=== PATIENT | female | born 1995 | race Caucasian/White ===

== ENCOUNTER 2022-04-26 12:53 | Emergency (ER) | payer OTHER, SELFPAY ==
[2022-04-26 14:31] VITALS: BP 115/92; PULSE 75; RESP 16; TEMP 36.1; O2SAT 98; BMI 41.5
--- NOTE | 2022-04-26 18:35 | PC.NURSE ---
called x 3 to back. no answer. Presumed LWT
== END 2022-04-26 18:57 | disposition left against medical advice (07) ==
LOC: HO.ED 18:43
PROVIDERS: Emergency Provider Emergency Medicine
DX: M79.604 Pain in right leg (principal); R26.81 Unsteadiness on feet
CPT/HCPCS: 99281; 99282

== ENCOUNTER 2022-11-10 13:41 | Emergency (ER) | payer OTHER, SELFPAY ==
--- NOTE | ~2022-11-10 | CT_ITS ---
EXAMINATION: CT HEAD WITHOUT CONTRAST CLINICAL INFORMATION: Headache, left-sided weakness, resolved COMPARISON: None available. TECHNIQUE: Contiguous axial imaging was performed from the skull base to vertex without intravenous administration of contrast. This CT examination was performed using dose optimization techniques as appropriate, variously including the following: *Automated exposure control *Adjustment of mA and/or kV according to patient size (this includes techniques or standardized protocols for targeted exams where dose is matched to indication/reason for exam; i.e. extremities or head) *Use of iterative reconstruction technique DLP: 646 mGy-cm FINDINGS: There is no evidence of acute intracranial hemorrhage or territorial infarction. No abnormal mass effect or midline shift is seen. Virgen to white matter differentiation is well preserved. No extra-axial fluid collections are identified. The ventricles are normal in size. No abnormal attenuation in the brain parenchyma. No acute calvarial fracture.. Paranasal sinuses and mastoid air cells are well-aerated. CT/CT head/brain wo IV con IMPRESSION: No CT evidence of acute intracranial hemorrhage or edematous territorial infarction. Cause of the patient's symptoms has not been determined. Further evaluation with CTA or MRI as clinically warranted.
--- NOTE | ~2022-11-10 | US_ITS ---
EXAMINATION: US VENOUS ULTRASOUND WITH DOPPLER LOWER EXTREMITY, RIGHT CLINICAL INFORMATION: Right calf pain. COMPARISON: None available. TECHNIQUE: Ultrasound of the deep veins is performed from the hip to the calf with compression sonography and color and pulse Doppler assessment. Spectral analysis with color-flow imaging is performed. FINDINGS: There is normal venous compression and respiratory variation and augmented flow. The visualized common femoral vein, superficial femoral vein, profunda femoral vein, popliteal vein, and the trifurcation region shows no evidence of deep venous thrombosis. There is no significant popliteal fossa cyst. If the patient's symptoms persist, followup ultrasound in 5 days 7 days might be of value to exclude proximal propagation from a non-visualized calf vein. US/US venous duplex LE RT IMPRESSION: No DVT demonstrated in the right lower extremity.
[2022-11-10 14:56] VITALS: BP 134/93; PULSE 61; RESP 19; TEMP 36.6; O2SAT 98; BMI 41.5
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
--- OUTSIDE RECORDS SUMMARY | 2022-11-10 16:07 | XMS_ITS | Continuity of Care Document ---
:1995 Author Organization [facility] ic Address [address] [place] [id number]- Care Team Providers Name Role Phone Ritika Rosen Primary Care Physician [place] [facility] [place]/18/20 - 12/18/[address] [id number] Allergies, Adverse Reactions, Alerts Substance Reaction Severity Status shellfish Active Immunizations Given and Recorded Vaccine Date Status Refusal Reason tetanus/diphtheria/pertussis, acel(Tdap) 10/09/16 Given tetanus/diphtheria/pertussis, acel(Tdap) 09/26/13 Given influenza virus vaccine, inactivated1 06/19/16 Given influenza virus vaccine, inactivated 07/18/13 Given 1Result Comment: afluria vaccine Medications aspirin 81 mg oral delayed release tablet 162 mg, 2, tablet, By Mouth, Daily, To start at 12 weeks gestational age - December 22, 2020, # 90 tablet,Refills 2, Tot. Refills 2, Maintenance, 12/09/20 10:13:00 EDT, Route to Pharmacy Electronically, [facility]/pharmacy #[id number], Partial fill upon patient request... Start Date: 12/09/20 Status: Orderedprazosin 2 mg oral capsule 2 capsule = 4 mg, By Mouth, Daily at bedtime, for nightmares, # 60 capsule, 1 Refills, Maintenance, 10/03/18 11:31:36 EST Start Date: 10/03/18 Stop Date: 12/02/18 Status: OrderedPrenatal Multivitamins with Folic Acid 1 mg oral tablet 1 tablet, By Mouth, Daily, # 90 tablet, 2 Refills, Maintenance, 11/13/20 10:27:00 EDT, Tablet, [facility]/pharmacy #[id number], Partial fill upon patient request if the prescription is for a schedule II opioid drug., 1 tablet By Mouth Daily, 171, cm, 10/21/20 9:54... Start Date: 11/13/20 Status: OrderedUnisom 25 mg oral tablet 1 tablet = 25 mg, By Mouth, Daily at bedtime, PRN Nausea & Vomiting, # 30 tablet, 1 Refills, Acute 03/16/21 10:28:00 EDT, 11/13/20 10:27:00 EDT, [facility]/pharmacy #[id number], Partial fill upon patient request if the prescription is for a schedule II opioid drug... Start Date: 11/13/20 Stop Date: 03/16/21 Status: OrderedVitamin B6 25 mg oral tablet 1 tablet = 25 mg, By Mouth, 3 times a day, PRN Nausea & Vomiting, # 90 tablet, 1 Refills, Acute 03/16/21 10:27:00 EDT, 11/13/20 10:27:00 EDT, [facility]/pharmacy #[id number], Partial fill upon patient request if the prescription is for a schedule II opioid drug.,... 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
--- OUTSIDE RECORDS SUMMARY | 2022-11-10 16:07 | XMS_ITS | Continuity of Care Document ---
:1995 Author Organization [facility] ic Address [address] [place] [id number]- Care Team Providers Name Role Phone Ritika Rosen Primary Care Physician Encounter [facility] [place] Date(s): 12/09/20 - 01/10/[address] [address]- Attending Physician: Not on Staff, Attending MD Allergies, Adverse Reactions, Alerts Substance Reaction Severity [...] 90 tablet,Refills 2, Tot. Refills 2, Maintenance, 12/31/20 9:42:00 EDT, Route to Pharmacy Electronically, [facility]/pharmacy #[id number], Partial fill upon patient request... Start Date: 12/31/20 Status: OrderedPrenatal Multivitamins with Folic Acid 1 mg oral tablet 1 tablet, By Mouth, Daily, # 90 tablet, 2 Refills, Maintenance, 11/13/20 10:27:00 EDT, Tablet, [facility]/pharmacy #[id number], Partial fill upon patient request if the prescription is for a schedule II opioid drug., 1 tablet By Mouth Daily, 171, cm, 10/21/20 9:54... Start Date: 11/13/20 Status: OrderedUnisom 25 mg oral tablet 1 tablet = 25 mg, By Mouth, Daily at bedtime, PRN Nausea & Vomiting, # 30 tablet, 1 Refills, Acute 03/16/21 10:28:00 EDT, 11/13/20 10:27:00 EDT, [facility]/pharmacy #[id number], Partial fill upon patient request if the prescription is for a schedule II opioid drug... Start Date: 11/13/20 Stop Date: 03/16/21 Status: OrderedVitamin B6 25 mg oral tablet 1 tablet = 25 mg, By Mouth, 3 times a day, PRN Nausea & Vomiting, # 90 tablet, 1 Refills, Acute 03/16/21 10:27:00 EDT, 11/13/20 10:27:00 EDT, [facility]/pharmacy #[id number], Partial fill upon patient request if the prescription is for a schedule II opioid drug.,... Start Date: 11/13/20 Stop Date: 03/16/21 Status: Ordered Problem List Condition Effective Dates [...]
--- OUTSIDE RECORDS SUMMARY | 2022-11-10 16:07 | XMS_ITS | Continuity of Care Document ---
:1995 Author Organization [facility] ic Address [address] [place] [address]- Care Team Providers Name Role Phone Ritika Rosen Primary Care Physician Encounter [facility] Date(s): 09/29/21 - 11/07/[address] [address]- Attending Physician: Not on Staff, Attending MD Allergies, Adverse Reactions, Alerts Substance Reaction Severity Status shellfish Active Immunizations Given and Recorded Vaccine Date Status Refusal Reason SARS-CoV-2 (COVID-19) mRNA BNT-162b2 vac 06/20/21 Given influenza virus vaccine, inactivated 06/19/21 Given influenza virus vaccine, inactivated1 06/19/16 Given influenza virus vaccine, inactivated 07/18/13 Given tetanus/diphtheria/pertussis, acel(Tdap) 04/18/21 Given tetanus/diphtheria/pertussis, acel(Tdap) 10/09/16 Given tetanus/diphtheria/pertussis, acel(Tdap) 09/26/13 Given 1Result Comment: afluria vaccine Medications acetaminophen 325 mg oral tablet 650 mg, By Mouth, Every 4 hours, PRN, (1-3), may give 325mg per patient preference and re-dose with 325mg within 4 hours, if needed. Patient should only receive a total of 650mg of Acetaminophen every 4 hours., # 50 tablet, Refills 0, Tot. Refills 0... Start Date: 06/20/21 Status: OrderedColace sodium 100 mg oral capsule 100 mg, 1, capsule, By Mouth, 2 times a day, Refills 0, Maintenance, 06/20/21 6:35:00 EDT, Partial fill upon patient request if the prescription is for a schedule II opioid drug. Start Date: 06/20/21 Status: Orderedibuprofen 800 mg oral tablet 800 mg, 1, tablet, By Mouth, Every 8 hours, PRN, (4-6), may give 400mg per patient preference and re-dose with 400mg within 8 hours if needed. Patient should only receive a total of 800mg of Ibuprofen every 8 hours., # 50 tablet, Refills 0, Tot. Ref... Start Date: 06/20/21 Status: OrderedmedroxyPROGESTERone 150 mg/mL intramuscular suspension 1 mL = 150 mg, Intramuscular, On Discharge, 0 Refills, Maintenance, 06/20/21 6:35:00 EDT, Injection,Partial fill upon patient request if the prescription is for a schedule II opioid drug. Start Date: 06/20/21 Status: OrderedPrenatal Multivitamins with Folic Acid 1 mg oral tablet 1 tablet, By Mouth, Daily, # 90 tablet, 2 Refills, Maintenance, 11/13/20 10:27:00 EDT, Tablet, [id number], Partial fill upon patient request if the prescription is for a schedule II opioid drug., 1 tablet By Mouth Daily, 171, cm, 10/21/20 9:54... 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
--- OUTSIDE RECORDS SUMMARY | 2022-11-10 16:07 | XMS_ITS | Continuity of Care Document ---
:1994 Author Organization [facility] ic Address [address] [place] [address]- Care Team Providers Name Role Phone Ritika Rosen Primary Care Physician [place] [facility] [place] 08/04/22 - 09/06/[address] [address]- Attending Physician: Not on Staff, Attending MD Referring Physician: Ritika Rosen Allergies, Adverse Reactions, Alerts Substance Reaction Severity Status shellfish Active Immunizations Given and Recorded Vaccine Date Status Refusal Reason SARS-CoV-2 (COVID-19) mRNA BNT-162b2 vac 06/20/21 Given influenza virus vaccine, inactivated 06/19/21 Given influenza virus vaccine, inactivated1 06/19/16 Given influenza virus vaccine, inactivated 07/18/13 Given tetanus/diphtheria/pertussis, acel(Tdap) 04/18/21 Given tetanus/diphtheria/pertussis, acel(Tdap) 10/09/16 Given tetanus/diphtheria/pertussis, acel(Tdap) 09/26/13 Given 1Result Comment: afluria vaccine Medications Depo-Provera Contraceptive 150 mg/mL intramuscular suspension 1 mL = 150 mg, Intramuscular, 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 Start Date: 05/12/22 Status: OrderedPlan B One-Step 1.5 mg oral tablet 1.5 mg, 1, tablet, By Mouth, Once, # 1 tablet, Refills 0, Tot. Refills 0, Soft Stop, 05/12/22 9:07:00 EDT, Route to Pharmacy Electronically, [facility]/pharmacy #[id number], Partial fill upon patient request if theprescription is for a schedule II opioid drug., 1... Start Date: 05/12/22 Status: Ordered Problem List Condition Confirmation Course Effective Dates Status Health I nformant Status anxiety Confirmed Active Marijuana use Confirmed Active ASCUS with positive Confirmed Active high risk HPV cervical Depo-Provera Confirmed Active contraceptive status History of Confirmed Active gestational diabetes History of Confirmed Active pre-eclampsia Morbid obesity with Confirmed Active BMI of 40.0-44.9, adult Polycystic ovarian Confirmed Active syndrome Severe obesity Confirmed Active Social History Social History Type Response Smoking Status Former smoker, quit more mamta n 30 days ago entered on: 04/08/20 Sex Female Patient Care team information Care Team PersonnelName: Ritika Rosen Position: [facility] Outreach Member Role: PCP Address: Address: [address] [place] [address]- Care Team Related PersonsName: JAELYN HALL Address: home [address] [place] [address] Name: JENNYFER JOHNSON Address: [address] Address: home [address] [address] [place]
--- OUTSIDE RECORDS SUMMARY | 2022-11-10 16:07 | XMS_ITS | Continuity of Care Document ---
:1994 Author Organization [facility] ic Address [address] [place] [address]- Care Team Providers Name Role Phone Ritika Rosen Primary Care Physician Encounter [facility] Date(s): 07/28/21 - 08/27/[address] [address]- Allergies, Adverse Reactions, Alerts Substance Reaction Severity [...] 2 Refills, Maintenance, 11/13/20 10:27:00 EDT, Tablet, [facility]/pharmacy #[id number], Partial fill upon patient request if the prescription is for a schedule II opioid drug., 1 tablet By Mouth Daily, 171, cm, 10/21/20 9:54... Start Date: 11/13/20 Status: Ordered Problem List Condition Effective Dates Status Health Status Informant Marijuana use(Confirmed) Active ASCUS with positive high risk HPV Active cervical(Confirmed) History of gestational Active diabetes(Confirmed) History of pre-eclampsia(Confirmed) Active Morbid obesity with BMI of 40.0-44.9, Active adult(Confirmed) Polycystic ovarian syndrome(Confirmed) Active Severe obesity(Confirmed) Active Social History Social History Type Response Smoking Status Former smoker, quit more mamta n 30 days ago entered on: 04/08/20 Sex Female
--- OUTSIDE RECORDS SUMMARY | 2022-11-10 16:07 | XMS_ITS | Continuity of Care Document ---
:1994 Author Organization [facility] ic Address [address] [place] [address]- Care Team Providers Name Role Phone Ritika Rosen Primary Care Physician Encounter [facility] Date(s): 05/23/21 - 06/22/[address] [address]- Allergies, Adverse Reactions, Alerts Substance Reaction Severity [...] 2 Refills, Maintenance, 11/13/20 10:27:00 EDT, Tablet, [facility]/pharmacy #[id number], Partial fill upon patient request if [...]
--- OUTSIDE RECORDS SUMMARY | 2022-11-10 16:07 | XMS_ITS | Continuity of Care Document ---
:1994 Author Organization [facility] Address [address] [place] [address]- Care Team Providers Name Role Phone Ritika Rosen Primary Care Physician Encounter [facility] [place] Date(s): 03/04/21 - 03/04/[address] [address] Discharge Disposition: A-D/C AMA Attending Physician: Zahida Delarosa MD Admitting Physician: Zahida Delarosa MD Referring Physician: Zahida Delarosa MD Allergies, Adverse Reactions, Alerts Substance Reaction [...] 12/31/20 9:42:00 EDT, Route to Pharmacy [facility]ically, [id number], Partial fill upon patient request... Start Date: 12/31/20 Status: Orderedmagnesium oxide 500 mg oral tablet 1 tablet = 500 mg, By Mouth, Daily, for 14 days, # 14 tablet, 0 Refills, Acute 03/17/21 17:38:00 EDT, 03/03/21 17:38:00 EDT, Tablet, [id number], Partial fill upon patient request if the prescription is for a schedule II opioid drug., 171, cm,... Start Date: 03/03/21 Stop Date: 03/17/21 Status: OrderedPrenatal Multivitamins with Folic Acid 1 [...] Acute 03/16/21 10:27:00 EDT, 11/13/20 10:27:00 EDT, [id number], Partial [...] 40.0-44.9, Active adult(Confirmed) Polycystic ovarian syndrome(Confirmed) Active Vital Signs Most recent to oldest [Reference Range]: 1 Oxygen Saturation [94-100 %] 100 % (03/04/21 10:19 PM) Pulse Rate [55-90 bpm] 85 bpm (03/04/21 10:19 PM) Blood Pressure [90-138/55-84 mm Hg] 145/71 mm Hg *H* (03/04/21 10:19 PM) Respiratory Rate [16-30 br/min] 18 br/min (03/04/21 10:19 PM) Temperature [96.8-100.4 DegF] 98.4 DegF (03/04/21 10:19 PM) Mode of Delivery (Oxygen) Room air (03/04/21 10:19 PM) Blood pressure sites Arm, left (03/04/21 10:19 PM) Temperature Route Oral (03/04/21 10:19 PM) Dry Weight 126.4 kg (03/04/21 10:19 PM) Dry Weight Obtained Via Standing scale (03/04/21 10:19 PM) Social History Social History Type Response Smoking Status Former smoker, quit more mamta n 30 days ago entered on: 04/08/20 Sex
--- OUTSIDE RECORDS SUMMARY | 2022-11-10 16:07 | XMS_ITS | Continuity of Care Document ---
:1994 Author Organization [facility] ic Address [address] [place] [address]- Care Team Providers Name Role Phone Ritika Rosen Primary Care Physician [place] [facility] [place] 07/[place] - 10/04/[address] [address] Attending Physician: Not on Staff, Attending MD [...] 2 Refills, Maintenance, 11/13/20 10:27:00 EDT, Tablet, [facility]/pharmacy #[id number], Partial fill upon patient request [...]
--- OUTSIDE RECORDS SUMMARY | 2022-11-10 16:07 | XMS_ITS | Continuity of Care Document ---
:1994 Author Organization [facility] Address [address] [place] [address]- Care Team Providers Name Role Phone Ritika Rosen Primary Care Physician Encounter [facility] [place] Date(s): 01/23/21 - 01/23/[address] [address] Discharge Disposition: A-D/C Home Attending Physician: Juan Gomes MD Admitting Physician: Juan Gomes MD Referring Physician: Juan Gomes MD Allergies, Adverse Reactions, Alerts Substance Reaction [...] 12/31/20 9:42:00 EDT, Route to Pharmacy Electronically, [facility]/pharmacy #[id number], Partial fill upon patient request... Start Date: 12/31/20 Status: OrderedPrenatal Multivitamins with Folic Acid 1 mg oral tablet 1 tablet, By Mouth, Daily, # 90 tablet, 2 Refills, Maintenance, 11/13/20 10:27:00 EDT, Tablet, [facility]/pharmacy #[id number], Partial fill upon patient request if the prescription is for a schedule II opioid drug., 1 tablet By Mouth Daily, 171, cm, 10/21/20 9:54... Start Date: 11/13/20 Status: OrderedUnisom 25 mg oral tablet 1 tablet = 25 mg, By Mouth, Daily at bedtime, PRN Nausea & Vomiting, # 30 tablet, 1 Refills, Acute 03/16/21 10:28:00 EDT, 11/13/20 10:27:00 EDT, [facility]/pharmacy #[id number], Partial fill upon patient request if the prescription is for a schedule II opioid drug... Start Date: 11/13/20 Stop Date: 03/16/21 Status: OrderedVitamin B6 25 mg oral tablet 1 tablet = 25 mg, By Mouth, 3 times a day, PRN Nausea & Vomiting, # 90 tablet, 1 Refills, Acute 03/16/21 10:27:00 EDT, 11/13/20 10:27:00 EDT, [facility]/pharmacy #[id number], Partial fill upon patient [...] Most recent to oldest [Reference Range]: 1 Weight 121.9 kg (01/23/21 7:01 AM) Oxygen Saturation [94-100 %] 100 % (01/23/21 7:12 AM) Blood Pressure [90-138/55-84 mm Hg] 106/50 mm Hg (01/23/21 7:12 AM) Respiratory Rate [16-30 br/min] 18 br/min (01/23/21 7:12 AM) Temperature [96.8-100.4 DegF] 98.3 DegF (01/23/21 7:12 AM) Mode of Delivery (Oxygen) Room air (01/23/21 7:12 AM) Blood pressure sites Arm, left (01/23/21 7:12 AM) Temperature Route Oral (01/23/21 7:12 AM) Dry Weight 121.9 kg (01/23/21 7:01 AM) Weight Obtained Via Standing scale (01/23/21 7:01 AM) Social History Social History Type Response Smoking Status Former smoker, quit more mamta n 30 days ago entered on: 04/08/20 Sex
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
--- OUTSIDE RECORDS SUMMARY | 2022-11-10 16:07 | XMS_ITS | Continuity of Care Document ---
:1994 Author Organization [facility] ic Address [address] [place] [address]- Care Team Providers Name Role Phone Ritika Rosen Primary Care Physician Encounter [facility] Date(s): 06/09/21 - 07/09/[address] [address]- Allergies, Adverse Reactions, Alerts Substance Reaction Severity [...] 2 Refills, Maintenance, 11/13/20 10:27:00 EDT, Tablet, [facility]/pharmacy #[id number], Partial fill upon patient request if [...]
--- OUTSIDE RECORDS SUMMARY | 2022-11-10 16:07 | XMS_ITS | Continuity of Care Document ---
:1994 Author Organization [facility] ic Address [address] [place] [address]- Care Team Providers Name Role Phone Ritika Rosen Primary Care Physician [place] [facility] [place](s): 12/31/20 - 02/12/[address] [address]- Attending Physician: Not on Staff, Attending MD [...] 12/31/20 9:42:00 EDT, Route to Pharmacy Electronically, [facility]/pharmacy #[id number], Partial fill upon patient request... Start Date: 12/31/20 Status: OrderedPrenatal Multivitamins with Folic Acid 1 mg oral tablet 1 tablet, By Mouth, Daily, # 90 tablet, 2 Refills, Maintenance, 11/13/20 10:27:00 EDT, Tablet, [facility]/pharmacy #[id number], Partial fill upon patient request if the prescription is for a schedule II opioid drug., 1 tablet By Mouth Daily, 171, cm, 10/21/20 9:54... Start Date: 11/13/20 Status: OrderedUnisom 25 mg oral tablet 1 tablet = 25 mg, By Mouth, Daily at bedtime, PRN Nausea & Vomiting, # 30 tablet, 1 Refills, Acute 03/16/21 10:28:00 EDT, 11/13/20 10:27:00 EDT, [facility]/pharmacy #[id number], Partial fill upon patient request if the prescription is for a schedule II opioid drug... Start Date: 11/13/20 Stop Date: 03/16/21 Status: OrderedVitamin B6 25 mg oral tablet 1 tablet = 25 mg, By Mouth, 3 times a day, PRN Nausea & Vomiting, # 90 tablet, 1 Refills, Acute 03/16/21 10:27:00 EDT, 11/13/20 10:27:00 EDT, [facility]/pharmacy #[id number], Partial fill upon patient request [...]
--- OUTSIDE RECORDS SUMMARY | 2022-11-10 16:07 | XMS_ITS | Continuity of Care Document ---
:1994 Author Organization [facility] ic Address [address] [place] [address]- Care Team Providers Name Role Phone Ritika Rosen Primary Care Physician Encounter [facility] Date(s): 06/20/21 - 09/24/[address] [address]- Attending Physician: Not on Staff, Attending MD [...]
--- OUTSIDE RECORDS SUMMARY | 2022-11-10 16:07 | XMS_ITS | Continuity of Care Document ---
:1994 Author Organization [facility] ic Address [address] [place] [address]- Care Team Providers Name Role Phone Elvira WALKER, Snehal Jovel Primary Care Physician Encounter [facility] Date(s): 08/15/20 - 10/04/[address] [address]- Attending Physician: Not on Staff, Attending MD [...] 04/08/20 17:23:00 EDT, Route to Pharmacy Electronically, [facility]/pharmacy #[id number], 171, cm, 04/08/20 12:24:00 EDT, Height Start [...] exposure to STD(Confirmed) Active Marijuana use(Confirmed) Active Elevated blood pressure Active reading(Confirmed) Morbid obesity with BMI of 40.0-44.9, Active adult(Confirmed) Polycystic ovarian syndrome(Confirmed) Active Social History Social History Type Response Smoking Status Former smoker, quit more mamta n 30 days ago entered on: 04/08/20 Sex
--- OUTSIDE RECORDS SUMMARY | 2022-11-10 16:07 | XMS_ITS | Continuity of Care Document ---
:1994 Author Organization [facility] Address [address] [place] [address]- Care Team Providers Name Role Phone Elvira WALKER, Snehal Jovel Primary Care Physician [phone] [place] [facility] 08/17/19 - 09/20/[address] [address] [facility] Attending Physician: Not on Staff, Attending MD Allergies, Adverse Reactions, Alerts Substance Reaction Severity Status shellfish Active Immunizations Given and Recorded Vaccine Date Status Refusal Reason tetanus/diphtheria/pertussis, acel(Tdap) 10/09/16 Given tetanus/diphtheria/pertussis, acel(Tdap) 09/26/13 Given influenza virus vaccine, inactivated1 06/19/16 Given influenza virus vaccine, inactivated 07/18/13 Given 1Result Comment: afluria vaccine Medications prazosin 2 mg oral capsule 2 capsule = [...] Exogenous obesity(Confirmed) Active Homeless - lives in longterm(Confirmed) Active Morbid obesity with BMI of 40.0-44.9, Active adult(Confirmed) Encounter for Depo-Provera Active contraception(Confirmed) Polycystic ovarian syndrome(Confirmed) Active Social History Social History Type Response Smoking Status Current every day smoker; To bacco user in household: Yes entered on: 06/12/15 Sex
--- OUTSIDE RECORDS SUMMARY | 2022-11-10 16:07 | XMS_ITS | Continuity of Care Document ---
:1994 Author Organization [facility] ic Address [address] [place] [address]- Care Team Providers Name Role Phone Ritika Rosen Primary Care Physician Encounter [facility] Date(s): 10/13/21 - 12/17/[address] [address]- Attending Physician: Not on Staff, Attending MD [...]
--- OUTSIDE RECORDS SUMMARY | 2022-11-10 16:07 | XMS_ITS | Continuity of Care Document ---
:1994 Author Organization [facility] ic Address [address] [place] [address]- Care Team Providers Name Role Phone Ritika Rosen Primary Care Physician Encounter [facility] Date(s): 01/02/22 - 02/05/[address] [address]- Attending Physician: Not on Staff, Attending MD [...]
--- OUTSIDE RECORDS SUMMARY | 2022-11-10 16:07 | XMS_ITS | Continuity of Care Document ---
:1994 Author Organization [facility] ic Address [address] [place] [address]- Care Team Providers Name Role Phone Elvira WALKER, Snehal Jovel Primary Care Physician Encounter [facility] Date(s): 08/05/20 - 09/04/[address] [address]- Allergies, Adverse Reactions, Alerts Substance Reaction Severity [...] 04/08/20 17:23:00 EDT, Route to Pharmacy Electronically, [facility]/pharmacy #[id number], 171, cm, 04/08/20 12:24:00 EDT, Height Start [...]
--- OUTSIDE RECORDS SUMMARY | 2022-11-10 16:07 | XMS_ITS | Continuity of Care Document ---
:1994 Author Organization [facility] Address [address] [place] [address]- Care Team Providers Name Role Phone Elvira WALKER, Snehal Jovel Primary Care Physician Encounter [facility] [place] Date(s): 08/21/19 - 08/31/[address] [address]- [facility] Attending Physician: Eric Barkley Admitting Physician: Eric Barkley Referring Physician: Eric Barkley Allergies, Adverse Reactions, Alerts Substance Reaction Severity [...] Exogenous obesity(Confirmed) Active Homeless - lives in halfway(Confirmed) Active Morbid obesity with BMI of 40.0-44.9, Active adult(Confirmed) Encounter for Depo-Provera Active contraception(Confirmed) Polycystic ovarian syndrome(Confirmed) Active Social History Social History Type Response Smoking Status Current every day smoker; To bacco user in household: Yes entered on: 06/12/15 Sex
--- OUTSIDE RECORDS SUMMARY | 2022-11-10 16:07 | XMS_ITS | Continuity of Care Document ---
:1994 Author Organization [facility] ic Address [address] [place] [address]- Care Team Providers Name Role Phone Ritika Rosen Primary Care Physician Encounter [facility] Date(s): 02/06/21 - 03/08/[address] [address]- Allergies, Adverse Reactions, Alerts Substance Reaction Severity Status shellfish Active Immunizations Given and Recorded Vaccine Date Status Refusal Reason tetanus/diphtheria/pertussis, acel(Tdap) 10/09/16 Given tetanus/diphtheria/pertussis, acel(Tdap) 09/26/13 Given influenza virus vaccine, inactivated1 06/19/16 Given influenza virus vaccine, inactivated 07/18/13 Given 1Result Comment: afluria vaccine Medications Amoxicillin By Mouth, Maintenance, 03/05/21 10:43:00 EDT Start Date: 03/05/21 Status: Orderedaspirin 81 mg oral delayed release tablet 162 [...]
--- OUTSIDE RECORDS SUMMARY | 2022-11-10 16:07 | XMS_ITS | Continuity of Care Document ---
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 Start Date: 05/12/22 Status: OrderedPlan B One-Step 1.5 mg oral tablet 1.5 mg, 1, tablet, By Mouth, Once, # 1 tablet, Refills 0, Tot. Refills 0, Soft Stop, 05/12/22 9:07:00 EDT, Route to Pharmacy Electronically, [facility]/pharmacy #[id number], Partial fill upon patient request if theprescription [...] information Care Team PersonnelName: Ritika Rosen Position: [facility] Outreach Member Role: PCP Address: Address: [address] [place] [address]- Care Team Related PersonsName: JAELYN HALL Address: home [address] [place] [address] Name: JENNYFER JOHNSON Address: [address] Address: home [address] [address]
--- OUTSIDE RECORDS SUMMARY | 2022-11-10 16:07 | XMS_ITS | Continuity of Care Document ---
:1994 Author Organization [facility] ic Address [address] [place] [address]- Care Team Providers Name Role Phone Ritika Rosen Primary Care Physician Encounter [facility] [place] Date(s): 01/28/21 - 05/15/[address] [address] Attending Physician: Not on Staff, Attending MD Allergies, Adverse Reactions, Alerts Substance Reaction Severity Status shellfish Active Immunizations Given and Recorded Vaccine Date Status Refusal Reason tetanus/diphtheria/pertussis, acel(Tdap) 04/18/21 Given tetanus/diphtheria/pertussis, acel(Tdap) 10/09/16 [...] 12/31/20 9:42:00 EDT, Route to Pharmacy Electronically, [facility]/pharmacy #[id number], Partial fill upon patient request... Start Date: 12/31/20 Status: OrderedPrenatal Multivitamins with Folic Acid 1 mg oral tablet 1 tablet, By Mouth, Daily, # 90 tablet, 2 Refills, Maintenance, 11/13/20 10:27:00 EDT, Tablet, [facility]/pharmacy #[id number], Partial fill upon patient request [...]
--- OUTSIDE RECORDS SUMMARY | 2022-11-10 16:07 | XMS_ITS | Continuity of Care Document ---
:1994 Author Organization 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 Start Date: 05/12/22 Status: OrderedPlan B One-Step 1.5 mg oral tablet 1.5 mg, 1, tablet, By Mouth, Once, # 1 tablet, Refills 0, Tot. Refills 0, Soft Stop, 05/12/22 9:07:00 EDT, Route to Pharmacy Electronically, [facility]/pharmacy #[id number], Partial fill upon patient request [...] information Care Team PersonnelName: Ritika Rosen Position: [facility] Outreach Member Role: PCP Address: Address: [address] [place] [address]- Care Team Related PersonsName: JAELYN HALL Address: home [address] [place] [address] Name: JENNYFER JOHNSON Address: [address] Address: [address] [address] [place]
--- OUTSIDE RECORDS SUMMARY | 2022-11-10 16:07 | XMS_ITS | Continuity of Care Document ---
:1994 Author Organization [facility] ic Address [address] [place] [address]- Care Team Providers Name Role Phone Ritika Rosen Primary Care Physician En[place] [facility] [place] Date(s): 12/11/20 - 01/29/[address] [address] Attending Physician: Not on Staff, Attending MD [...] 12/31/20 9:42:00 EDT, Route to Pharmacy Electronically, [facility]/pharmacy #[id number], Partial fill upon patient request... Start Date: 12/31/20 Status: OrderedPrenatal Multivitamins with Folic Acid 1 mg oral tablet 1 tablet, By Mouth, Daily, # 90 tablet, 2 Refills, Maintenance, 11/13/20 10:27:00 EDT, Tablet, [facility]/pharmacy #[id number], Partial fill upon patient request if the prescription is for a schedule II opioid drug., 1 tablet By Mouth Daily, 171, cm, 10/21/20 9:54... Start Date: 11/13/20 Status: OrderedUnisom 25 mg oral tablet 1 tablet = 25 mg, By Mouth, Daily at bedtime, PRN Nausea & Vomiting, # 30 tablet, 1 Refills, Acute 03/16/21 10:28:00 EDT, 11/13/20 10:27:00 EDT, [facility]/pharmacy #[id number], Partial fill upon patient request if the prescription is for a schedule II opioid drug... Start Date: 11/13/20 Stop Date: 03/16/21 Status: OrderedVitamin B6 25 mg oral tablet 1 tablet = 25 mg, By Mouth, 3 times a day, PRN Nausea & Vomiting, # 90 tablet, 1 Refills, Acute 03/16/21 10:27:00 EDT, 11/13/20 10:27:00 EDT, [facility]/pharmacy #[id number], Partial fill upon [...]
--- OUTSIDE RECORDS SUMMARY | 2022-11-10 16:07 | XMS_ITS | Continuity of Care Document ---
:1994 Author Organization [facility] ic Address [address] [place] [address]- Care Team Providers Name Role Phone Ritika Rosen Primary Care Physician Encounter [facility] Date(s): 04/29/21 - 07/31/[address] [address] Attending Physician: Not on Staff, [...] 2 Refills, Maintenance, 11/13/20 10:27:00 EDT, Tablet, [facility]/pharmacy #[id number], Partial fill upon patient request if [...]
--- OUTSIDE RECORDS SUMMARY | 2022-11-10 16:07 | XMS_ITS | Continuity of Care Document ---
:1994 Author Organization [facility] ic Address [address] [place] [address]- Care Team Providers Name Role Phone Ritika Rosen Primary Care Physician Encounter [facility] Date(s): 10/08/21 - 11/07/[address] [address]- Allergies, Adverse Reactions, Alerts Substance Reaction Severity [...] 2 Refills, Maintenance, 11/13/20 10:27:00 EDT, Tablet, [facility]/pharmacy #[id number], Partial fill upon patient request [...]
--- OUTSIDE RECORDS SUMMARY | 2022-11-10 16:08 | XMS_ITS | Continuity of Care Document ---
:1994 Author Organization [facility] ic Address [address] [place] [address]- Care Team Providers Name Role Phone Ritika Rosen Primary Care Physician Encounter [facility] Date(s): 12/09/21 - 01/10/[address] [address]- Attending Physician: Not on Staff, Attending MD [...]
--- OUTSIDE RECORDS SUMMARY | 2022-11-10 16:08 | XMS_ITS | Continuity of Care Document ---
:1994 Author Organization [facility] ic Address [address] [place] [address]- Care Team Providers Name Role Phone Ritika Rosen Primary Care Physician Encounter [facility] Date(s): 09/12/21 - 10/12/[address] [address]- Allergies, Adverse Reactions, Alerts Substance Reaction Severity [...] 2 Refills, Maintenance, 11/13/20 10:27:00 EDT, Tablet, [facility]/pharmacy #[id number], Partial fill upon patient request [...]
--- OUTSIDE RECORDS SUMMARY | 2022-11-10 16:08 | XMS_ITS | Continuity of Care Document ---
:1994 Author Organization [facility] ic Address [address] [place] [address]- Care Team Providers Name Role Phone Ritika Rosen Primary Care Physician Encounter [facility] Date(s): 11/17/21 - 12/31/[address] [address]- Attending Physician: Not on Staff, Attending MD [...]
--- OUTSIDE RECORDS SUMMARY | 2022-11-10 16:08 | XMS_ITS | Continuity of Care Document ---
:1994 Author Organization [facility] ic Address [address] [place] [address]- Care Team Providers Name Role Phone Ritika Rosen Primary Care Physician Encounter [facility] Date(s): 12/02/21 - 01/01/[address] [address]- Allergies, Adverse Reactions, Alerts Substance Reaction Severity [...] 2 Refills, Maintenance, 11/13/20 10:27:00 EDT, Tablet, [facility]/pharmacy #[id number], Partial fill upon patient [...]
--- OUTSIDE RECORDS SUMMARY | 2022-11-10 16:08 | XMS_ITS | Continuity of Care Document ---
:1994 Author Organization [facility] Address [address] [place] [address]- Care Team Providers Name Role Phone Ritika Rosen Primary Care Physician [place] [facility] [place] 06/17/21 - 07/20/[address] [address] Attending Physician: Scarlet Villarreal MD Admitting Physician: Scarlet Villarreal MD Referring Physician: Ijemoa Corona CNM Allergies, Adverse Reactions, Alerts Substance Reaction Severity [...]
--- OUTSIDE RECORDS SUMMARY | 2022-11-10 16:08 | XMS_ITS | Continuity of Care Document ---
:1994 Author Organization [facility] ic Address [address] [place] [address]- Care Team Providers Name Role Phone Ritika Rosen Primary Care Physician [place] [facility] [place] 04/29/21 - 08/07/[address] [address] Attending Physician: Hui Luna CNM Admitting Physician: Hui Luna CNM Allergies, Adverse Reactions, Alerts Substance Reaction [...] 2 Refills, Maintenance, 11/13/20 10:27:00 EDT, Tablet, [facility]/pharmacy #[id number], Partial fill [...]
--- OUTSIDE RECORDS SUMMARY | 2022-11-10 16:08 | XMS_ITS | Continuity of Care Document ---
:1994 Author Organization [facility] ic Address [address] [place] [address]- Care Team Providers Name Role Phone Elvira WALKER, Snehal Jovel Primary Care Physician [phone] [place] [facility] [place] Date(s): 08/05/20 - 09/08/[address] [address]- Attending Physician: Hui Luna CNM Admitting Physician: [...] 04/08/20 17:23:00 EDT, Route to Pharmacy Electronically, [facility]/pharmacy #[id number], 171, cm, 04/08/20 12:24:00 EDT, Height Start [...]
--- OUTSIDE RECORDS SUMMARY | 2022-11-10 16:08 | XMS_ITS | Continuity of Care Document ---
:1994 Author Organization [facility] ic Address [address] [place] [address]- Care Team Providers Name Role Phone Elvira WALKER, Snehal Jovel Primary Care Physician [place] [facility] [place] Date(s): 09/17/20 - 10/17/[address] [address]- Allergies, Adverse Reactions, Alerts Substance Reaction Severity [...] 04/08/20 17:23:00 EDT, Route to Pharmacy Electronically, [facility]/pharmacy #[id number], 171, cm, 04/08/20 12:24:00 EDT, Height Start [...] Active cervical(Confirmed) Elevated blood pressure Active reading(Confirmed) Morbid obesity with BMI of 40.0-44.9, Active adult(Confirmed) Polycystic ovarian syndrome(Confirmed) Active Social History Social History Type Response Smoking Status Former smoker, quit more mamta n 30 days ago entered on: 04/08/20 Sex
--- OUTSIDE RECORDS SUMMARY | 2022-11-10 16:08 | XMS_ITS | Continuity of Care Document ---
:1994 Author Organization [facility] Address [address] [place] [address]- Care Team Providers Name Role Phone Ritika Rosen Primary Care Physician [place] [facility] [place](s): 06/18/21 - 06/20/[address] [address] Discharge Disposition: A-D/C Home Attending Physician: Lupe Cedeno MD Admitting Physician: Lupe Cedeno MD Referring Physician: Mitul Post DO Allergies, Adverse Reactions, Alerts Substance Reaction Severity [...] Tot. Refills 0... Start Date: 06/20/21 Status: OrderedAcetaminophen Tablet 650 mg, Tablet, By Mouth, Every 4 hours, PRN for Pain , Mild, (1-3), may give 325mg per patient preference and re-dose with 325mg within 4 hours, if needed. Patient should only receive a total of 650mgof Acetaminophen every 4 hours., Routine, 06/18... Start Date: 06/18/21 Stop Date: 06/20/21 Status: DiscontinuedColace sodium 100 mg oral capsule 100 mg, [...] 0, Tot. Ref... Start Date: 06/20/21 Status: OrderedIbuprofen Tablet 800 mg, Tablet, By Mouth, Every 8 hours, PRN for Pain , Moderate, (4-6), may give 400mg per patient preference and re-dose with 400mg within 8 hours if needed. Patient should only receive a total of 800mg of Ibuprofen every 8 hours., Routine, ... Start Date: 06/18/21 Stop Date: 06/20/21 Status: DiscontinuedmedroxyPROGESTERone 150 mg/mL intramuscular suspension 1 mL = 150 mg, Intramuscular, On Discharge, 0 Refills, Maintenance, 06/20/21 6:35:00 EDT, Injection,Partial fill upon patient request if the prescription is for a schedule II opioid drug. Start Date: 06/20/21 Status: OrderedPrenatal Multivitamins with Folic Acid 1 mg oral tablet 1 tablet, By Mouth, Daily, # 90 tablet, 2 Refills, Maintenance, 11/13/20 10:27:00 EDT, Tablet, [id number], Partial fill upon patient request if the [...] Active Vital Signs Most recent to oldest 1 2 3 [Reference Range]: Height 170 cm 170 cm 170 cm (06/20/21 8:20 AM) (06/19/21 10:00 PM) (06/19/21 4:20 PM) Weight 137 kg (06/18/21 8:03 AM) Oxygen Saturation [94-100 98 % 95 % 100 % %] (06/19/21 10:00 PM) (06/18/21 7:47 PM) (06/18/21 7:09 PM) Pulse Rate [55-90 bpm] 70 bpm 70 bpm 75 bpm (06/20/21 8:20 AM) (06/19/21 10:00 PM) (06/19/21 4:20 PM) Body Mass Index 47.4 [18.5-24.99] *>HHI* (06/18/21 8:03 AM) Blood Pressure 137/71 mm Hg 130/93 mm Hg 117/60 mm Hg [90-138/55-84 mm Hg] (06/20/21 8:20 AM) (06/19/21 10:00 PM) ( 4:20 PM) Respiratory Rate [16-30 17 br/min 18 br/min 18 br/mi n br/min] (06/20/21 8:20 AM) (06/20/21 7:46 AM) (06/20/21 7:46 AM) Temperature [96.8-100.4 98.6 DegF 98.1 DegF 98.3 Deg F DegF] (06/20/21 8:20 AM) (06/19/21 10:00 PM) (06/19/21 4:20 PM) Mode of Delivery (Oxygen) Room air (06/19/21 10:00 PM) Blood pressure sites Arm, right Arm, left Arm, left (06/20/21 8:20 AM) (06/19/21 10:00 PM) (06/19/21 4:20 PM) Temperature Route Oral Oral Oral (06/20/21 8:20 AM) (06/19/21 10:00 PM) (06/19/21 4:20 PM) Dry Weight 137 kg (06/18/21 8:03 AM) Social History Social History Type Response Smoking Status Former smoker, quit more mamta n 30 days ago entered on: 04/08/20 Sex Female
--- OUTSIDE RECORDS SUMMARY | 2022-11-10 16:08 | XMS_ITS | Continuity of Care Document ---
:1994 Author Organization [facility] ic Address [address] [place] [address]- Care Team Providers Name Role Phone Elvira WALKER, Snehal Jovel Primary Care Physician [phone] Encounter [facility] Date(s): 09/03/20 - 10/03/[address] [address]- Allergies, Adverse Reactions, Alerts Substance Reaction Severity [...] 04/08/20 17:23:00 EDT, Route to Pharmacy Electronically, [facility]/pharmacy #[id number], 171, cm, 04/08/20 12:24:00 EDT, Height Start [...]
--- OUTSIDE RECORDS SUMMARY | 2022-11-10 16:08 | XMS_ITS | Continuity of Care Document ---
:1994 Author Organization [facility] ic Address [address] [place] [address]- Care Team Providers Name Role Phone Ritika Rosen Primary Care Physician [place] [facility] [place] 07/[place] - 09/27/[address] [address] Attending Physician: Not on Staff, Attending MD [...] Refills, Maintenance, 11/13/20 10:27:00 EDT, Tablet, [facility]/pharmacy #[id number], Partial fill upon patient request [...]
--- OUTSIDE RECORDS SUMMARY | 2022-11-10 16:08 | XMS_ITS | Continuity of Care Document ---
:1994 Author Organization [facility] Address Unavailable , Care Team Providers Name Role Phone Ritika Rosen Primary Care Physician [place] [facility] [place] Date(s): 03/07/21 - 04/10/21 [facility] Attending Physician: Not on Staff, Attending MD Referring Physician: Ijeoma Corona CNM Allergies, Adverse Reactions, Alerts Substance [...] 12/31/20 9:42:00 EDT, Route to Pharmacy Electronically, [facility]/pharmacy #[id number], Partial fill upon patient request... Start Date: 12/31/20 Status: OrderedPrenatal Multivitamins with Folic Acid 1 mg oral tablet 1 tablet, By Mouth, Daily, # 90 tablet, 2 Refills, Maintenance, 11/13/20 10:27:00 EDT, Tablet, [facility]/pharmacy #[id number], Partial fill upon patient [...]
--- OUTSIDE RECORDS SUMMARY | 2022-11-10 16:08 | XMS_ITS | Continuity of Care Document ---
:1994 Author Organization [facility] ic Address [address] [place] [address]- Care Team Providers Name Role Phone Ritika Rosen Primary Care Physician Encounter [facility] Date(s): 04/29/21 - 07/24/[address] [address]- Attending Physician: Not on Staff, Attending MD [...]
--- OUTSIDE RECORDS SUMMARY | 2022-11-10 16:08 | XMS_ITS | Continuity of Care Document ---
:1994 Author Organization [facility] ic Address [address] [place] [address]- Care Team Providers Name Role Phone Ritika Rosen Primary Care Physician Encounter [facility] Date(s): 09/16/21 - 01/01/[address] [address]- Attending Physician: Not on Staff, Attending MD [...]
--- OUTSIDE RECORDS SUMMARY | 2022-11-10 16:08 | XMS_ITS | Continuity of Care Document ---
:1994 Author Organization [facility] Address [address] [place] [address]- Care Team Providers Name Role Phone Ritika Rosen Primary Care Physician [place] [facility] [place] Date(s): 05/07/21 - 05/07/[address] [address] Discharge Disposition: A-D/C Home Attending Physician: Mis Martinez MD Admitting Physician: Mis Martinez MD Referring Physician: Mis Martinez MD Allergies, Adverse Reactions, Alerts Substance Reaction [...] 12/31/20 9:42:00 EDT, Route to Pharmacy Electronically, [facility]/pharmacy #[id number], Partial fill upon patient request... Start Date: 12/31/20 Status: OrderedPrenatal Multivitamins with Folic Acid 1 mg oral tablet 1 tablet, By Mouth, Daily, # 90 tablet, 2 Refills, Maintenance, 11/13/20 10:27:00 EDT, Tablet, [id number], Partial fill upon patient request if the prescription is for a schedule II opioid drug., 1 tablet By Mouth Daily, 171, cm, 10/21/20 9:54... Start Date: 11/13/20 Status: OrderedTylenol 325 mg oral tablet 650 mg, Tablet, By Mouth, Every 6 hours, PRN for Pain , Mild, Routine, 05/07/21 10:24:00 EDT Start Date: 05/07/21 Stop Date: 05/08/21 Status: Discontinued Problem List Condition Effective Dates Status Health Status Informant Abnormal uterine bleeding(Confirmed) Active Marijuana use(Confirmed) Active ASCUS with positive high risk HPV Active cervical(Confirmed) Elevated blood pressure Active reading(Confirmed) Gestational diabetes(Confirmed) Active Morbid obesity with BMI of 40.0-44.9, Active adult(Confirmed) Polycystic ovarian syndrome(Confirmed) Active Vital Signs Most recent to oldest 1 2 3 [Reference Range]: Height 170 cm (05/07/21 9:26 AM) Weight 130.6 kg (05/07/21 9:17 AM) Pulse Rate [55-90 bpm] 86 bpm (05/07/21 9:26 AM) Blood Pressure [90-138/55-84 130/66 mm Hg 122/60 mm Hg 125 /87 mm Hg mm Hg] (05/07/21 1:54 PM) (05/07/21 11:06 AM) (05/07/21 9: 26 AM) Respiratory Rate [16-30 16 br/min 18 br/min br/min] (05/07/21 2:10 PM) (05/07/21 11:06 AM) Temperature [96.8-100.4 DegF] 98.4 DegF (05/07/21 9:17 AM) Blood pressure sites Arm, right (05/07/21 9:26 AM) Temperature Route Oral (05/07/21 9:17 AM) Dry Weight 130.6 kg (05/07/21 9:17 AM) Weight Obtained Via Standing scale (05/07/21 9:17 AM) Dry Weight Obtained Via Standing scale (05/07/21 9:17 AM) Social History Social History Type Response Smoking Status Former smoker, quit more mamta n 30 days ago entered on: 04/08/20 Sex Female
--- OUTSIDE RECORDS SUMMARY | 2022-11-10 16:08 | XMS_ITS | Continuity of Care Document ---
:1994 Author Organization [facility] ic Address [address] [place] [address]- Care Team Providers Name Role Phone Ritika Rosen Primary Care Physician [place] [facility] [place](s): 06/18/21 - 07/24/[address] [address]- Attending Physician: Pina Scott MD Admitting Physician: Pina Scott MD Referring Physician: Ijeoma Corona CNM Allergies, [...]
--- OUTSIDE RECORDS SUMMARY | 2022-11-10 16:08 | XMS_ITS | Continuity of Care Document ---
:1994 Author Organization [facility] ic Address [address] [place] [address]- Care Team Providers Name Role Phone Ritika Rosen Primary Care Physician Encounter [facility] Date(s): 12/01/21 - 12/31/[address] [address]- Allergies, Adverse Reactions, Alerts Substance Reaction Severity [...] 2 Refills, Maintenance, 11/13/20 10:27:00 EDT, Tablet, [facility]/pharmacy #[id number], Partial fill upon patient request if [...]
--- OUTSIDE RECORDS SUMMARY | 2022-11-10 16:08 | XMS_ITS | Continuity of Care Document ---
:1994 Author Organization [facility] ic Address [address] [place] [address]- Care Team Providers Name Role Phone Elvira WALKER, Snehal Jovel Primary Care Physician Encounter [facility] Date(s): 04/17/20 - 06/19/[address] [address]- [facility] Attending Physician: Not on Staff, Attending MD [...] 04/08/20 17:23:00 EDT, Route to Pharmacy Electronically, [facility]/pharmacy #[id number], 171, cm, 04/08/20 12:24:00 EDT, Height Start [...] Exogenous obesity(Confirmed) Active Homeless - lives in group home(Confirmed) Active Morbid obesity with BMI of 40.0-44.9, Active adult(Confirmed) Encounter for Depo-Provera Active contraception(Confirmed) Polycystic ovarian syndrome(Confirmed) Active Social History Social History Type Response Smoking Status Former smoker, quit more mamta n 30 days ago entered on: 04/08/20 Sex
--- OUTSIDE RECORDS SUMMARY | 2022-11-10 16:08 | XMS_ITS | Continuity of Care Document ---
:1994 Author Organization [facility] Address Unavailable , Care Team Providers Name Role Phone Ritika Rosne Primary Care Physician [facility]counter [facility] Date(s): 03/21/21 - 04/20/21 [facility] Attending Physician: Eric Barkley Admitting Physician: Eric Barkely Referring Physician: AdmtrEric Allergies, Adverse Reactions, Alerts Substance Reaction Severity [...] 12/31/20 9:42:00 EDT, Route to Pharmacy Electronically, [facility]/pharmacy #[id number], Partial fill upon patient request... Start [...]
--- OUTSIDE RECORDS SUMMARY | 2022-11-10 16:09 | XMS_ITS | Continuity of Care Document ---
:1994 Author Organization [facility] ic Address [address] [place] [address]- Care Team Providers Name Role Phone Ritika Rosen Primary Care Physician Encounter [facility] [place] Date(s): 11/13/20 - 12/13/[address] [address]- Allergies, Adverse Reactions, Alerts Substance Reaction Severity [...] 12/09/20 10:13:00 EDT, Route to Pharmacy Electronically, [facility]/pharmacy #[id number], Partial fill upon patient request... Start Date: [...] Acute 03/16/21 10:27:00 EDT, 11/13/20 10:27:00 EDT, [facility]/pharmacy #[id number], Partial fill upon [...]
--- OUTSIDE RECORDS SUMMARY | 2022-11-10 16:09 | XMS_ITS | Continuity of Care Document ---
:1994 Author Organization [facility] ic Address [address] [place] [address]- Care Team Providers Name Role Phone Elvira WALKER, Snehal Jovel Primary Care Physician [phone] [place] [facility] [place] 03/22/20 - 04/28/[address] [address] [facility] Attending Physician: Not on Staff, Attending MD [...] 17:23:00 EDT, Route to Pharmacy Electronically, [facility]/pharmacy #[id number], 171, cm, 04/08/20 12:24:00 EDT, Height Start [...]
--- OUTSIDE RECORDS SUMMARY | 2022-11-10 16:09 | XMS_ITS | Continuity of Care Document ---
:1994 Author Organization [facility] ic Address [address] [place] [address]- Care Team Providers Name Role Phone Ritika Rosen Primary Care Physician [facility] Date(s): 09/10/21 - 10/10/[address] [address]- Allergies, Adverse Reactions, Alerts Substance Reaction Severity [...] 2 Refills, Maintenance, 11/13/20 10:27:00 EDT, Tablet, [facility]/pharmacy #[id number], Partial fill upon patient request if [...]
--- OUTSIDE RECORDS SUMMARY | 2022-11-10 16:09 | XMS_ITS | Continuity of Care Document ---
:1994 Author Organization [facility] Address [address] [place] [address]- Care Team Providers Name Role Phone Elvira WALKER, Snehal Jovel Primary Care Physician [phone] Encounter [facility] [place] Date(s): 11/18/20 - 11/18/[address] [address] Discharge Disposition: A-D/C Home Attending Physician: Cassie Butler MD Admitting Physician: Cassie Butler MD Referring Physician: Cassie Butler MD Allergies, Adverse Reactions, Alerts Substance Reaction [...] 04/08/20 17:23:00 EDT, Route to Pharmacy Electronically, [facility]/pharmacy #[id number], 171, cm, 04/08/20 12:24:00 EDT, Height [...] 1 Oxygen Saturation [94-100 %] 100 % (11/18/20 9:54 AM) Blood Pressure [90-138/55-84 mm Hg] 137/60 mm Hg (11/18/20 9:54 AM) Respiratory Rate [16-30 br/min] 17 br/min (11/18/20 9:54 AM) Temperature [96.8-100.4 DegF] 98.9 DegF (11/18/20 9:54 AM) Blood pressure sites Arm, right (11/18/20 9:54 AM) Temperature Route Oral (11/18/20 9:54 AM) Social History Social History Type Response Smoking Status Former smoker, quit more mamta n 30 days ago entered on: 04/08/20 Sex
--- OUTSIDE RECORDS SUMMARY | 2022-11-10 16:09 | XMS_ITS | Continuity of Care Document ---
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 Start Date: 05/12/22 Status: OrderedPlan B One-Step 1.5 mg oral tablet 1.5 mg, 1, tablet, By Mouth, Once, # 1 tablet, Refills 0, Tot. Refills 0, Soft Stop, 05/12/22 9:07:00 EDT, Route to Pharmacy Electronically, [facility]/pharmacy #[id number], Partial fill upon patient [...] information Care Team PersonnelName: Ritika Rosen Position: [facility] Outreach Member Role: PCP Address: Address: [address] [place] [address]- Care Team Related PersonsName: JAELYN HALL Address: home [address] [place] [address] Name: JENNYFER JOHNSON Address: [address] Address: home [address] [address] [place]
--- OUTSIDE RECORDS SUMMARY | 2022-11-10 16:09 | XMS_ITS | Continuity of Care Document ---
:1994 Author Organization [facility] ic Address [address] [place] [address]- Care Team Providers Name Role Phone Elvira WALKER, Snehal Jovel Primary Care Physician [phone] Encounter [facility] [place] Date(s): 09/17/20 - 12/04/[address] [address]- Attending Physician: Not on Staff, Attending MD [...] 04/08/20 17:23:00 EDT, Route to Pharmacy Electronically, [facility]/pharmacy #[id number], 171, cm, 04/08/20 12:24:00 EDT, Height [...] 2 Refills, Maintenance, 11/13/20 10:27:00 EDT, Tablet, [facility]/pharmacy #[id number], Partial fill upon patient request if the prescription is for a schedule II opioid drug., 1 tablet By Mouth Daily, 171, cm, 10/21/20 9:54... Start Date: 11/13/20 Status: OrderedUnisom 25 mg oral tablet 1 tablet = 25 mg, By Mouth, Daily at bedtime, PRN Nausea & Vomiting, # 30 tablet, 1 Refills, Acute 03/16/21 10:28:00 EDT, 11/13/20 10:27:00 EDT, [facility]/pharmacy #[id number], Partial fill upon patient request if the prescription is for a schedule II opioid drug... Start Date: 11/13/20 Stop Date: 03/16/21 Status: OrderedVitamin B6 25 mg oral tablet 1 tablet = 25 mg, By Mouth, 3 times a day, PRN Nausea & Vomiting, # 90 tablet, 1 Refills, Acute 03/16/21 10:27:00 EDT, 11/13/20 10:27:00 EDT, [facility]/pharmacy #[id number], Partial fill upon patient request if [...]
--- OUTSIDE RECORDS SUMMARY | 2022-11-10 16:09 | XMS_ITS | Continuity of Care Document ---
:1994 Author Organization [facility] ic Address [address] [place] [address]- Care Team Providers Name Role Phone Ritika Rosen Primary Care Physician [facility] Date(s): 12/17/20 - 01/16/[address] [address]- Allergies, Adverse Reactions, Alerts Substance Reaction Severity [...] 12/31/20 9:42:00 EDT, Route to Pharmacy Electronically, [facility]/pharmacy #[id number], Partial fill upon patient request... Start Date: 12/31/20 Status: OrderedPrenatal Multivitamins with Folic Acid 1 mg oral tablet 1 tablet, By Mouth, Daily, # 90 tablet, 2 Refills, Maintenance, 11/13/20 10:27:00 EDT, Tablet, [facility]/pharmacy #[id number], Partial fill upon patient request if the prescription is for a schedule II opioid drug., 1 tablet By Mouth Daily, 171, cm, 10/21/20 9:54... Start Date: 11/13/20 Status: OrderedUnisom 25 mg oral tablet 1 tablet = 25 mg, By Mouth, Daily at bedtime, PRN Nausea & Vomiting, # 30 tablet, 1 Refills, Acute 03/16/21 10:28:00 EDT, 11/13/20 10:27:00 EDT, [facility]/pharmacy #[id number], Partial fill upon patient request if the prescription is for a schedule II opioid drug... Start Date: 11/13/20 Stop Date: 03/16/21 Status: OrderedVitamin B6 25 mg oral tablet 1 tablet = 25 mg, By Mouth, 3 times a day, PRN Nausea & Vomiting, # 90 tablet, 1 Refills, Acute 03/16/21 10:27:00 EDT, 11/13/20 10:27:00 EDT, [facility]/pharmacy #[id number], Partial fill upon patient request [...]
--- OUTSIDE RECORDS SUMMARY | 2022-11-10 16:09 | XMS_ITS | Continuity of Care Document ---
:1994 Author Organization [facility] Address [address] [place] [address]- Care Team Providers Name Role Phone Elvira WALKER, Snehal Jovel Primary Care Physician [place] [facility] [place] Date(s): 04/08/20 - 04/08/[address] [address]- [facility] Encounter Diagnosis Vaginal pain (Discharge Diagnosis) - 04/08/20 Irregular menses (Discharge Diagnosis) - 04/08/20 Discharge Disposition: A-D/C Home Attending Physician: Cassie [...] 04/08/20 17:23:00 EDT, Route to Pharmacy Electronically, [facility]/pharmacy #[id number], 171, cm, 04/08/20 12:24:00 EDT, Height Start [...] Exogenous obesity(Confirmed) Active Homeless - lives in senior care(Confirmed) Active Morbid obesity with BMI of 40.0-44.9, Active adult(Confirmed) Encounter for Depo-Provera Active contraception(Confirmed) Polycystic ovarian syndrome(Confirmed) Active Diagnosis Diagnosis Type Effective Dates Health Status Clinical In formant Service Vaginal pain Discharge 04/08/20 Diagnosis Irregular menses Discharge 04/08/20 Diagnosis Vital Signs Most recent to oldest [Reference Range]: 1 2 Height 171 cm (04/08/20 12:24 PM) Weight 122.1 kg (04/08/20 12:09 PM) Oxygen Saturation [94-100 %] 100 % (04/08/20 12:24 PM) Pulse Rate [55-90 bpm] 62 bpm (04/08/20 12:24 PM) Blood Pressure [90-138/55-84 mm Hg] 131/48 mm Hg (04/08/20 12:24 PM) Respiratory Rate [16-30 br/min] 18 br/min (04/08/20 12:24 PM) Temperature [96.8-100.4 DegF] 98.2 DegF 98.0 DegF (04/08/20 12:24 PM) (04/08/20 12:09 PM) Mode of Delivery (Oxygen) Room air (04/08/20 12:24 PM) Blood pressure sites Leg, left (04/08/20 12:24 PM) Temperature Route Oral Oral (04/08/20 12:24 PM) (04/08/20 12:09 PM) Weight Obtained Via Standing scale (04/08/20 12:09 PM) Social History Social History Type Response Smoking Status Former smoker, quit more mamta n 30 days ago entered on: 04/08/20 Sex
--- OUTSIDE RECORDS SUMMARY | 2022-11-10 16:09 | XMS_ITS | Continuity of Care Document ---
:1994 Author Organization [facility] Address [address] [place] [address]- Care Team Providers Name Role Phone Elvira WALKER, Snehal Jovel Primary Care Physician [phone] En[place] [facility] [place] Date(s): 07/26/19 - 09/08/[address] [address]- [facility] Attending Physician: Hui Luna CNM Admitting Physician: [...] Exogenous obesity(Confirmed) Active Homeless - lives in long term(Confirmed) Active Morbid obesity with BMI of 40.0-44.9, Active adult(Confirmed) Encounter for Depo-Provera Active contraception(Confirmed) Polycystic ovarian syndrome(Confirmed) Active Social History Social History Type Response Smoking Status Current every day smoker; To bacco user in household: Yes entered on: 06/12/15 Sex
--- OUTSIDE RECORDS SUMMARY | 2022-11-10 16:09 | XMS_ITS | Continuity of Care Document ---
:1994 Author Organization [facility] Address [address] [place] [address]- Care Team Providers Name Role Phone Ritika Rosen Primary Care Physician [facility] Date(s): 02/25/21 - 03/27/21 [facility] [address] [place] [id number] Allergies, Adverse Reactions, Alerts Substance Reaction [...] 12/31/20 9:42:00 EDT, Route to Pharmacy Electronically, [facility]/pharmacy #[id number], Partial fill upon patient request... Start Date: 12/31/20 Status: OrderedPrenatal Multivitamins with Folic Acid 1 mg oral tablet 1 tablet, By Mouth, Daily, # 90 tablet, 2 Refills, Maintenance, 11/13/20 10:27:00 EDT, Tablet, [facility]/pharmacy #[id number], Partial fill upon [...]
--- OUTSIDE RECORDS SUMMARY | 2022-11-10 16:09 | XMS_ITS | Continuity of Care Document ---
:1994 Author Organization [facility] ic Address [address] [place] [address]- Care Team Providers Name Role Phone Elvira WALKER, Snehal Jovel Primary Care Physician [place] [facility] [place] 02/27/20 - 04/20/[address] [address]- [facility] Attending Physician: Not on Staff, Attending MD Allergies, Adverse Reactions, Alerts Substance Reaction Severity Status shellfish Active Immunizations Given and Recorded Vaccine Date Status Refusal Reason tetanus/diphtheria/pertussis, acel(Tdap) 10/09/16 Given tetanus/diphtheria/pertussis, acel(Tdap) 09/26/13 Given influenza virus vaccine, inactivated1 06/19/16 Given influenza virus vaccine, inactivated 07/18/13 Given 1Result Comment: afluria vaccine Medications Flagyl 500 mg oral tablet 1 tablet = 500 mg, By Mouth, Every 12 hours, for 7 days, do not drink alcohol, # 14 tablet, 0 Refills, Acute 04/26/20 11:37:00 EDT, 04/19/20 11:37:00 EDT, [facility]/pharmacy #[id number], 171, cm, 04/08/20 12:24:00EDT, Height Start Date: 04/19/20 Stop Date: 04/26/20 Status: Orderedibuprofen 600 mg oral tablet 600 mg, 1, tablet, By Mouth, Every 6 hours, # 40 tablet, Refills 0, Tot. Refills 0, Maintenance, 04/08/20 17:23:00 EDT, Route to Pharmacy Electronically, [facility]/pharmacy #[id number], 171, cm, 04/08/20 12:24:00 EDT, Height [...] Exogenous obesity(Confirmed) Active Homeless - lives in penitentiary(Confirmed) Active Morbid obesity with BMI of 40.0-44.9, Active adult(Confirmed) Encounter for Depo-Provera Active contraception(Confirmed) Polycystic ovarian syndrome(Confirmed) Active Social History Social History Type Response Smoking Status Former smoker, quit more mamta n 30 days ago entered on: 04/08/20 Sex
--- OUTSIDE RECORDS SUMMARY | 2022-11-10 16:09 | XMS_ITS | Continuity of Care Document ---
:1994 Author Organization [facility] ic Address [address] [place] [address]- Care Team Providers Name Role Phone Ritika Rosen Primary Care Physician Encounter [facility] Date(s): 04/15/21 - 05/15/[address] [address]- Allergies, Adverse Reactions, Alerts Substance Reaction Severity [...] 9:42:00 EDT, Route to Pharmacy Electronically, [facility]/pharmacy #[id number], Partial fill upon patient request... Start Date: 12/31/20 Status: OrderedPrenatal Multivitamins with Folic Acid 1 mg oral tablet 1 tablet, By Mouth, Daily, # 90 tablet, 2 Refills, Maintenance, 11/13/20 10:27:00 EDT, Tablet, [facility]/pharmacy #[id number], Partial fill upon patient request if [...]
--- OUTSIDE RECORDS SUMMARY | 2022-11-10 16:09 | XMS_ITS | Continuity of Care Document ---
:1994 Author Organization [facility] ic Address [address] [place] [address]- Care Team Providers Name Role Phone Ritika Rosen Primary Care Physician [facility] Date(s): 05/06/21 - 06/05/[address] [address] Allergies, Adverse Reactions, Alerts Substance [...] 12/31/20 9:42:00 EDT, Route to Pharmacy Electronically, [facility]/pharmacy #[id number], Partial fill upon patient request... Start Date: 12/31/20 Status: OrderedPrenatal Multivitamins with Folic Acid 1 mg oral tablet 1 tablet, By Mouth, Daily, # 90 tablet, 2 Refills, Maintenance, 11/13/20 10:27:00 EDT, Tablet, [facility]/pharmacy #[id number], Partial fill upon patient request if [...]
--- OUTSIDE RECORDS SUMMARY | 2022-11-10 16:09 | XMS_ITS | Continuity of Care Document ---
:1994 Author Organization [facility] ic Address [address] [place] [address]- Care Team Providers Name Role Phone Ritika Rosen Primary Care Physician [facility] Date(s): 09/10/21 - 10/11/[address] [address]- Attending Physician: Not on Staff, Attending MD [...] 2 Refills, Maintenance, 11/13/20 10:27:00 EDT, Tablet, [facility]/pharmacy #[id number], Partial fill upon patient request [...]
--- OUTSIDE RECORDS SUMMARY | 2022-11-10 16:09 | XMS_ITS | Continuity of Care Document ---
:1994 Author Organization [facility] ic Address [address] [place] [address]- Care Team Providers Name Role Phone Ritika Rosen Primary Care Physician [place] [facility] [place] Date(s): 03/03/21 - 04/02/[address] [address]- Allergies, Adverse Reactions, Alerts Substance Reaction Severity [...] 9:42:00 EDT, Route to Pharmacy Electronically, [facility]/pharmacy #[id number], Partial fill upon patient request... Start Date: 12/31/20 Status: OrderedPrenatal Multivitamins with Folic Acid 1 mg oral tablet 1 tablet, By Mouth, Daily, # 90 tablet, 2 Refills, Maintenance, 11/13/20 10:27:00 EDT, Tablet, [facility]/pharmacy #[id number], Partial fill upon patient request [...]
--- OUTSIDE RECORDS SUMMARY | 2022-11-10 16:09 | XMS_ITS | Continuity of Care Document ---
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 Start Date: 05/12/22 Status: OrderedPlan B One-Step 1.5 mg oral tablet 1.5 mg, 1, tablet, By Mouth, Once, # 1 tablet, Refills 0, Tot. Refills 0, Soft Stop, 05/12/22 9:07:00 EDT, Route to Pharmacy Electronically, [facility]/pharmacy #[id number], Partial fill upon patient request if theprescription [...] information Care Team PersonnelName: Ritika Rosen Position: [facility] Outreach Member Role: PCP Address: Address: [address] [place] [address]- Care Team Related PersonsName: JAELYN HALL Address: home [address] [place] [address] Name: JENNYFER JOHNSON Address: [address] Address: [address] [address] [place]
--- OUTSIDE RECORDS SUMMARY | 2022-11-10 16:09 | XMS_ITS | Continuity of Care Document ---
:1994 Author Organization [facility] Address Unavailable , Care Team Providers Name Role Phone Ritika Rosen Primary Care Physician [facility] Date[facility]s): 03/11/21 - 04/20/21 [facility] Attending Physician: Not on Staff, Attending [...] 12/31/20 9:42:00 EDT, Route to Pharmacy Electronically, [facility]/pharmacy #[id number], Partial fill upon patient request... Start Date: 12/31/20 Status: OrderedPrenatal Multivitamins with Folic Acid 1 mg oral tablet 1 tablet, By Mouth, Daily, # 90 tablet, 2 Refills, Maintenance, 11/13/20 10:27:00 EDT, Tablet, [facility]/pharmacy #[id number], Partial fill upon [...]
--- OUTSIDE RECORDS SUMMARY | 2022-11-10 16:09 | XMS_ITS | Continuity of Care Document ---
:1994 Author Organization [facility] ic Address [address] [place] [address]- Care Team Providers Name Role Phone Ritika Rosen Primary Care Physician [place] [facility] [place] Date(s): 04/29/21 - 08/14/[address] [address] Attending Physician: Not on Staff, Attending [...] 2 Refills, Maintenance, 11/13/20 10:27:00 EDT, Tablet, [facility]/pharmacy #[id number], Partial fill upon patient request [...]
--- OUTSIDE RECORDS SUMMARY | 2022-11-10 16:09 | XMS_ITS | Continuity of Care Document ---
:1994 Author Organization [facility] ic Address [address] [place] [address]- Care Team Providers Name Role Phone Elvira WALKER, Snehal Jovel Primary Care Physician Encounter [facility] Date(s): 11/04/20 - 12/04/[address] [address]- Allergies, Adverse Reactions, Alerts Substance Reaction Severity [...] 04/08/20 17:23:00 EDT, Route to Pharmacy Electronically, [facility]/pharmacy #[id number], 171, cm, 04/08/20 12:24:00 EDT, Height Start [...] Maintenance, 11/13/20 10:27:00 EDT, Tablet, [facility]/pharmacy #[id number], Partial fill upon patient [...] 10:28:00 EDT, 11/13/20 10:27:00 EDT, [facility]/pharmacy #[id number], Partial fill upon patient request if the prescription is for a schedule II opioid drug... Start Date: 11/13/20 Stop Date: 03/16/21 Status: OrderedVitamin B6 25 mg oral tablet 1 tablet = 25 mg, By Mouth, 3 times a day, PRN Nausea & Vomiting, # 90 tablet, 1 Refills, Acute 03/16/21 10:27:00 EDT, 11/13/20 10:27:00 EDT, [facility]/pharmacy #[id number], Partial fill upon patient [...]
--- OUTSIDE RECORDS SUMMARY | 2022-11-10 16:09 | XMS_ITS | Continuity of Care Document ---
:1994 Author Organization [facility] ic Address [address] [place] [address]- Care Team Providers Name Role Phone Ritika Rosen Primary Care Physician Encounter [facility] Date(s): 02/10/21 - 03/12/[address] [address]- Allergies, Adverse Reactions, Alerts Substance Reaction Severity [...]
--- OUTSIDE RECORDS SUMMARY | 2022-11-10 16:09 | XMS_ITS | Continuity of Care Document ---
:1994 Author Organization [facility] ic Address [address] [place] [address]- Care Team Providers Name Role Phone Elvira WALKER, Snehal Jovel Primary Care Physician Encounter [facility] [place] Date(s): 04/08/20 - 05/08/[address] [address]- [facility] Allergies, Adverse Reactions, Alerts Substance Reaction Severity [...] 04/08/20 17:23:00 EDT, Route to Pharmacy Electronically, [facility]/pharmacy #[id number], 171, cm, 04/08/20 12:24:00 EDT, Height Start [...] Exogenous obesity(Confirmed) Active Homeless - lives in prison(Confirmed) Active Morbid obesity with BMI of 40.0-44.9, Active adult(Confirmed) Encounter for Depo-Provera Active contraception(Confirmed) Polycystic ovarian syndrome(Confirmed) Active Social History Social History Type Response Smoking Status Former smoker, quit more mamta n 30 days ago entered on: 04/08/20 Sex
--- OUTSIDE RECORDS SUMMARY | 2022-11-10 16:09 | XMS_ITS | Continuity of Care Document ---
:1994 Author Organization [facility] ic Address [address] [place] [address]- Care Team Providers Name Role Phone Elvira WALKER, Snehal Jovel Primary Care Physician [place] [facility] [place] Date(s): 05/20/20 - 06/19/[address] [address]- [facility] Attending Physician: Eric Barkley Admitting Physician: Eric Barkley Referring Physician: AdmtrEric Allergies, Adverse Reactions, Alerts [...] EDT, Route to Pharmacy Electronically, [facility]/pharmacy #[id number], 171, cm, 04/08/20 12:24:00 EDT, Height Start [...] Exogenous obesity(Confirmed) Active Homeless - lives in detention(Confirmed) Active Morbid obesity with BMI of 40.0-44.9, Active adult(Confirmed) Encounter for Depo-Provera Active contraception(Confirmed) Polycystic ovarian syndrome(Confirmed) Active Social History Social History Type Response Smoking Status Former smoker, quit more mamta n 30 days ago entered on: 04/08/20 Sex
--- OUTSIDE RECORDS SUMMARY | 2022-11-10 16:09 | XMS_ITS | Continuity of Care Document ---
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/pharmacy #[id number], Partial fill upon patient request if the prescription is for a schedule II opioid drug., 170... Start Date: 05/12/22 Status: OrderedPlan B One-Step 1.5 mg oral tablet 1.5 mg, 1, tablet, By Mouth, Once, # 1 tablet, Refills 0, Tot. Refills 0, Soft Stop, 05/12/22 9:07:00 EDT, Route to Pharmacy Electronically, [facility]/pharmacy #[id number], Partial fill upon patient request if [...] information Care Team PersonnelName: Ritika Rosen Position: [facility] Outreach Member Role: PCP Address: Address: [address] [place] [address]- Care Team Related PersonsName: JAELYN HALL Address: home [address] [place] [address] Name: JENNYFER JOHNSON Address: [address] Address: [address] [address] [place]
--- OUTSIDE RECORDS SUMMARY | 2022-11-10 16:09 | XMS_ITS | Continuity of Care Document ---
:1994 Author Organization [facility] ic Address [address] [place] [address]- Care Team Providers Name Role Phone Ritika Rosen Primary Care Physician Encounter [facility] Date(s): 04/29/21 - 07/17/[address] [address]- Attending Physician: Not on Staff, Attending MD [...]
--- OUTSIDE RECORDS SUMMARY | 2022-11-10 16:09 | XMS_ITS | Continuity of Care Document ---
:1994 Author Organization [facility] ic Address [address] [place] [address]- Care Team Providers Name Role Phone Ritika Rosen Primary Care Physician Encounter [facility] Date(s): 12/17/21 - 01/18/[address] [address]- Attending Physician: Not on Staff, Attending MD [...]
--- OUTSIDE RECORDS SUMMARY | 2022-11-10 16:09 | XMS_ITS | Continuity of Care Document ---
:1994 Author Organization [facility] ic Address [address] [place] [address]- Care Team Providers Name Role Phone Ritika Rosen Primary Care Physician [place] [facility] [place]): [place] - 11/12/[address] [address]- Attending Physician: Not on Staff, Attending MD [...]
--- OUTSIDE RECORDS SUMMARY | 2022-11-10 16:09 | XMS_ITS | Continuity of Care Document ---
:1995 Author Organization [facility] ic Address [address] [place] [address]- Care Team Providers Name Role Phone Ritika Rosen Primary Care Physician [facility]counter [facility] Date(s): 06/12/21 - 07/12/[address] [address]- Allergies, Adverse Reactions, Alerts Substance Reaction Severity [...] 2 Refills, Maintenance, 11/13/20 10:27:00 EDT, Tablet, [facility]/pharmacy #[id number], Partial fill upon patient [...]
--- OUTSIDE RECORDS SUMMARY | 2022-11-10 16:09 | XMS_ITS | Continuity of Care Document ---
:1995 Author Organization [facility] ic Address [address] [place] [address]- Care Team Providers Name Role Phone Ritika Rosen Primary Care Physician Encounter [facility] Date(s): 06/05/21 - 07/05/[address] [address]- Allergies, Adverse Reactions, Alerts Substance Reaction Severity [...] 2 Refills, Maintenance, 11/13/20 10:27:00 EDT, Tablet, [facility]/pharmacy #[id number], Partial fill upon patient request [...]
--- OUTSIDE RECORDS SUMMARY | 2022-11-10 16:09 | XMS_ITS | Continuity of Care Document ---
:1995 Author Organization [facility] ic Address [address] [place] [address]- Care Team Providers Name Role Phone Ritika Rosen Primary Care Physician Encounter [facility] Date(s): 04/18/21 - 05/18/[address] [address]- Allergies, Adverse Reactions, Alerts Substance Reaction Severity [...]
--- OUTSIDE RECORDS SUMMARY | 2022-11-10 16:09 | XMS_ITS | Continuity of Care Document ---
:1995 Author Organization [facility] ic Address [address] [place] [address]- Care Team Providers Name Role Phone Elvira WALKER, Snehal Jovel Primary Care Physician [phone] Encounter [facility] Date(s): 08/12/20 - 09/11/[address] [address]- Attending Physician: Not on Staff, Attending MD Referring Physician: Snehal Felix NP Allergies, Adverse Reactions, Alerts Substance Reaction Severity [...] Route to Pharmacy Electronically, [facility]/pharmacy #[id number], 171, cm, 04/08/20 12:24:00 EDT, Height [...]
--- OUTSIDE RECORDS SUMMARY | 2022-11-10 16:09 | XMS_ITS | Continuity of Care Document ---
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 Start Date: 05/12/22 Status: OrderedPlan B One-Step 1.5 mg oral tablet 1.5 mg, 1, tablet, By Mouth, Once, # 1 tablet, Refills 0, Tot. Refills 0, Soft Stop, 05/12/22 9:07:00 EDT, Route to Pharmacy Electronically, [facility]/pharmacy #[id number], Partial fill upon patient request if theprescription [...] 04/08/20 Sex Female Patient Care team information PersonnelName: Ritika Rosen Address: Address: [address] [place] [address]
--- OUTSIDE RECORDS SUMMARY | 2022-11-10 16:09 | XMS_ITS | Continuity of Care Document ---
:1995 Author Organization [facility] ic Address [address] [place] [address]- Care Team Providers Name Role Phone Ritika Rosen Primary Care Physician Encounter [facility] Date(s): 05/22/21 - 06/21/[address] [address]- Allergies, Adverse Reactions, Alerts Substance Reaction Severity [...] 2 Refills, Maintenance, 11/13/20 10:27:00 EDT, Tablet, [facility]/pharmacy #[id number], Partial fill upon patient request [...]
[2022-11-10 16:10] LABS: MANUAL DIFF FLAG NO
--- OUTSIDE RECORDS SUMMARY | 2022-11-10 16:10 | XMS_ITS | Continuity of Care Document ---
:1995 Author Organization [facility] ic Address [address] [place] [address]- Care Team Providers Name Role Phone Ritika Rosen Primary Care Physician Encounter [facility] Date(s): 12/01/21 - 03/04/[address] [address]- Attending Physician: Not on Staff, Attending MD [...]
--- OUTSIDE RECORDS SUMMARY | 2022-11-10 16:10 | XMS_ITS | Continuity of Care Document ---
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 Start Date: 05/12/22 Status: OrderedPlan B One-Step 1.5 mg oral tablet 1.5 mg, 1, tablet, By Mouth, Once, # 1 tablet, Refills 0, Tot. Refills 0, Soft Stop, 05/12/22 9:07:00 EDT, Route to Pharmacy Electronically, [facility]/pharmacy #[id number], Partial fill upon patient request if theprescription [...] days ago entered on: 04/08/20 Sex Female Note Gordo Myles: PERFORM, SIGN, VERIFY Event Display: Patient Education/Instruction Authored Date: [id number] [facility] Consult[facility] Clinical Summary Person Information Visit Date 11/19/2016 3:20 PM Name RON SÁNCHEZ Age 21 Years 1995 12:00 AM PCP Elvira Ramos MD PCP Sex Female Race Unknown Ethnicity / Language Yemeni You can now view a summary of your hospital visit from the comfort of your home through a free online portal called Info. Info is a website that allows you to securely view yourmedical information including discharge summary, medications and follow-up visits. You can also senda secure electronic message to your doctor???s office to request appointments, renew medications or just ask a question. You can enroll at [email or web address] or register during your next office visit. Smoking can increase your chances of developing chronic health problems and can cause harmful effects to other family members in your house. If you smoke, you are strongly encouraged to quit. Please call the [place] Smokers??? Helpline at 3-697-ZDXUNOW (or ) or log on to [email or web address] for more information. Reason for Visit: Allergy Info: shellfish Smoking Status Current every day smoker Vital Signs Height Weight BMI Blood Pressure / Temperature Pulse Rate Respiratory Rate 02 Sat Mode of Delivery / Medication Information Multivitamin, ( Multivitamins with Folic Acid 1 mg oral tablet) 1 tablet, Oral, Daily, 90 days, Refills: 3 Multivitamin, ( Multivitamins with Folic Acid 1 mg oral tablet) 1 tablet, Oral, Daily, 90 days, Refills: 2 Future Orders No future orders Orders Completed this Visit No visit orders documented Problem List Problem Polycystic ovarian syndrome Exogenous obesity Morbid obesity Homeless Cannabis abuse Diagnosis Procedures No Procedures Documented If the following labs have been performed in the last year, the most recent result is displayed below. Diagnostic Results Lab Result Value Date Lead Hemoglobin A1C LDL HDL Triglycerides Total Cholesterol Disclaimer: The information provided is of a general nature and is intended to be used in conjunction with the recommendations and advice of your health care practitioner. Every effort has been made toensure that the information provided is accurate and complete at the time it is provided to you however, as your needs change, or, as new information becomes available, different or additional instructions may be required. If you have questions, please consult with your primary care provider or pharmacist, as appropriate.This information is not intended to serve as substitution for assessment and evaluation by a qualified health care provider. If you do not have a primary care provider, you may find a [facility] pr ovider by calling [facility] [employer] at [phone]. For information about the plan of care including goals and instructions for your diagnosis, please see the patient education orders section of this document. Patient Visit Summary: Future Appointments: Type Location Start Finish State Return OB [facility] Consultant 11/19/2016 3:20 PM 11/19/2016 3:40 PM Pending Follow-Up Instructions Patient Education Materials Additional Instructions:Yvonne Lee: PERFORM, SIGN, VERIFY Event Display: Patient Education/Instruction Authored Date: [id number] [facility] Consultant Clinical Summary Person Information Name RON SÁNCHEZ Age 17 Years 1995 12:00 AM PCP Genesis Swan MD PCP Reason for Visit: Allergy Info: NKA Vital Signs Height Weight BMI Blood Pressure / Temperature Pulse Rate Respiratory Rate 02 Sat Mode of Delivery / Medication Information Ciprofloxacin (Cipro 250 mg oral tablet) 1 tablet, Oral, every 12 hours, 3 days, Refills: 0 Metronidazole Topical (MetroGel-Vaginal 0.75% vaginal gel with applicator) , See Instructions, 1 applicator full daily for 7 days., Refills: 0 Multivitamin, ( Multivitamins with Folic Acid 1 mg oral tablet) 1 tablet, Oral, Daily, 90 days, Refills: 2 Nitrofurantoin (nitrofurantoin macrocrystals 100 mg oral capsule) , See Instructions, 1 capsule By Mouth 2 times a day 7 days, Refills: 0 Problem List Date Problem 03/14/13 08/14/10 Polycystic ovarian syndrome 08/14/10 Exogenous obesity If the following labs have been performed in the last year, the most recent result is displayed below. Diagnostic Results Lab Result Value Date Lead Hemoglobin A1C LDL HDL Triglycerides Total Cholesterol Disclaimer: The information provided is of a general nature and is intended to be used in conjunction with the recommendations and advice of your health care practitioner. Every effort has been made toensure that the information provided is accurate and complete at the time it is provided to you however, as your needs change, or, as new information becomes available, different or additional instructions may be required. If you have questions, please consult with your primary care provider or pharmacist, as appropriate.This information is not intended to serve as substitution for assessment and evaluation by a qualified health care provider. If you do not have a primary care provider, you may find a [facility] pr ovider by calling [facility] [employer] at [phone]. Patient Education Information Follow-up Details: Patient Education Material:Deon Zamora: PERFORM Event Display: Laboratory Results Scanned Authored Date: [id number] Patient Care team information Care Team PersonnelName: Ritika Rosen Position: [facility] Outreach Member Role: PCP Address: Address: [address] [place] [address]- Care Team Related PersonsName: JAELYN HALL Address: home [address] [place] [address] Name: JENNYFER JOHNSON Address: [address] Address: home [address] [address] [place]
--- OUTSIDE RECORDS SUMMARY | 2022-11-10 16:10 | XMS_ITS | Continuity of Care Document ---
:1995 Author Organization [facility] ic Address [address] [place] [address]- Care Team Providers Name Role Phone Ritika Rosen Primary Care Physician [facility]counter [facility] Date(s): 05/20/21 - 06/19/[address] [address] Allergies, Adverse Reactions, Alerts Substance Reaction Severity Status shellfish Active Immunizations Given and Recorded Vaccine Date Status Refusal Reason influenza virus vaccine, inactivated 06/19/21 Given influenza virus vaccine, inactivated1 06/19/16 Given influenza virus vaccine, inactivated 07/18/13 Given tetanus/diphtheria/pertussis, acel(Tdap) 04/18/21 Given tetanus/diphtheria/pertussis, acel(Tdap) 10/09/16 Given tetanus/diphtheria/pertussis, acel(Tdap) 09/26/13 Given 1Result Comment: afluria vaccine Medications Amoxicillin By Mouth, Maintenance, 03/05/21 10:43:00 EDT Start Date: 03/05/21 Status: Orderedaspirin 81 mg oral delayed release tablet 162 mg, 2, tablet, By Mouth, Daily, To start at 12 weeks gestational age - December 22, 2020, # 90 tablet,Refills 2, Tot. Refills 2, Maintenance, 12/31/20 9:42:00 EDT, Route to Pharmacy Electronically, [facility]/pharmacy #[id number], Partial fill upon patient request... Start Date: 12/31/20 Status: OrderedPrenatal Multivitamins with Folic Acid 1 mg oral tablet 1 tablet, By Mouth, Daily, # 90 tablet, 2 Refills, Maintenance, 11/13/20 10:27:00 EDT, Tablet, [facility]/pharmacy #[id number], Partial fill upon patient [...]
--- OUTSIDE RECORDS SUMMARY | 2022-11-10 16:10 | XMS_ITS | Continuity of Care Document ---
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 Start Date: 05/12/22 Status: OrderedPlan B One-Step 1.5 mg oral tablet 1.5 mg, 1, tablet, By Mouth, Once, # 1 tablet, Refills 0, Tot. Refills 0, Soft Stop, 05/12/22 9:07:00 EDT, Route to Pharmacy Electronically, [facility]/pharmacy #[id number], Partial fill upon patient request if theprescription [...] team information PersonnelName: Ritika Rosen Address: Address: [address] [place] [address]
--- OUTSIDE RECORDS SUMMARY | 2022-11-10 16:10 | XMS_ITS | Continuity of Care Document ---
:1995 Author Organization [facility] Address [address] [place] [address]- Care Team Providers Name Role Phone Not on Staff, PCP Primary Care Physician Unavailable Encounter [facility] [place] [place] Date(s): 03/05/21 - 03/05/[address] [address] Discharge Disposition: A-D/C Home Attending Physician: Mis [...] 12/31/20 9:42:00 EDT, Route to Pharmacy Electronically, [facility]/pharmacy #[id number], Partial fill upon [...] Date: 11/13/20 Status: OrderedTylenol 325 mg oral capsule 2 capsule = 650 mg, By Mouth, Every 4 hours, PRN as needed for fever, # 20 capsule, 1 Refills, Acute03/06/21 15:56:00 EDT, 03/05/21 15:56:00 EDT, Capsule, [facility]/pharmacy #[id number], Partial fill upon patientrequest if the prescription is for a schedule II... Start Date: 03/05/21 Stop Date: 03/06/21 Status: OrderedTylenol 325 mg oral tablet 650 mg, Tablet, By Mouth, Once, PRN for Pain , Moderate, Routine, 03/05/21 11:25:00 EDT Start Date: 03/05/21 Stop Date: 03/05/21 Status: CompletedUnisom 25 mg oral tablet 1 tablet = [...] to oldest 1 2 3 [Reference Range]: Weight 125.7 kg (03/05/21 10:33 AM) Oxygen Saturation [94-100 %] 100 % 100 % (03/05/21 3:24 PM) (03/05/21 10:33 AM) Pulse Rate [55-90 bpm] 76 bpm (03/05/21 3:24 PM) Blood Pressure [90-138/55-84 105/50 mm Hg 103/52 mm Hg 103 /52 mm Hg mm Hg] (03/05/21 3:45 PM) (03/05/21 3:30 PM) (03/05/21 3:2 4 PM) Respiratory Rate [16-30 18 br/min 18 br/min 18 br/mi n br/min] (03/05/21 3:24 PM) (03/05/21 12:25 PM) (03/05/21 10 :33 AM) Temperature [96.8-100.4 98.4 DegF DegF] (03/05/21 10:33 AM) Mode of Delivery (Oxygen) Room air (03/05/21 10:33 AM) Blood pressure sites Arm, left (03/05/21 10:33 AM) Temperature Route Oral (03/05/21 10:33 AM) Dry Weight 125.7 kg (03/05/21 10:33 AM) Weight Obtained Via Standing scale (03/05/21 10:33 AM) Dry Weight Obtained Via Standing scale (03/05/21 10:33 AM) Social History Social History Type Response Smoking Status Former smoker, quit more mamta n 30 days ago entered on: 04/08/20 Sex
[2022-11-10 16:12] LABS: Basophils Percent Auto 0.2 % (0-2); Eosinophils Absolute Auto 0.1 X10*3/uL (0.0-0.4); Eosinophils Percent Auto 1.4 % (0-4); Hematocrit 41.5 % (37.0-47.0); Hemoglobin 13.6 g/dl (12.0-16.0); Imm Gran Abs Auto 0.01 X10*3/uL (0.00-0.03); Imm Gran Pct Auto 0.1 % (0.0-0.4); Lymphocytes Absolute Auto 2.8 X10*3/uL (1.2-4.9); Lymphocytes Percent Auto 34.6 % (20-40); Mean Corpuscular HGB Conc 32.8 g/dl (31.0-35.0); Mean Corpuscular Hemoglobin 27.9 pg (27.0-33.0); Mean Corpuscular Volume 85.2 fL (80.0-98.0); Mean Platelet Volume 11.6 fL (9.4-12.3); Monocytes Absolute Auto 0.4 X10*3/uL (0.1-1.2); Monocytes Percent Auto 4.5 % (2-11); Neutrophils Absolute Auto 4.8 x10*3/uL (2.0-8.3); Neutrophils Percent Auto 59.2 % (45-73); Platelet Count 223 X10*3/uL (160-400); Red Blood Count 4.87 X10*6/uL (4.20-5.50); Red Cell Distribution Width 13.5 % (11.0-16.0); White Blood Count 8.1 X10*3/uL (4.8-10.8)
[2022-11-10 16:18] LABS: INTERNATIONAL NORM RATIO 1.1 (0.9-1.1); Prothrombin Time 12.1 SEC (10.0-13.1)
[2022-11-10 16:34] LABS: Alanine Aminotransferase 16 U/L (0-31); Albumin Level 4.2 g/dL (3.5-5.0); Alkaline Phosphatase 93 U/L (39-117); Anion Gap 12 (12-20); Aspartate Amino Transferase 15 U/L (5-31); Bilirubin Total 0.3 mg/dL (0.0-1.0); Blood Urea Nitrogen 10 mg/dL (9-16); Calcium 8.4 mg/dL (8.4-10.2); Carbon Dioxide 26 mmol/L (22-29); Chloride 106 mmol/L (96-108); Creatinine Clr Calc Pharmacy 156.1; Estimated Glomerular Filt Rate > 60; Glucose Random 150 mg/dL (60-115); Magnesium 2.2 mg/dL (1.6-2.6); Potassium 3.8 mmol/L (3.3-5.1); Sodium 140 mmol/L (135-145); Total Protein 6.4 g/dL (6.5-8.0)
[2022-11-10 17:16] LABS: C Reactive Protein < 0.10 mg/dL (< or = 0.50); HCG Quantitative < 2 mIU/mL
[2022-11-10 18:19] LABS: Erythrocyte Sedimentation Rate 7 MM/HR (0-20)
[2022-11-10 18:24] LABS: Estimated Average Glucose 114 mg/dL; Hemoglobin A1c % 5.6 %
== END 2022-11-10 18:31 | disposition home or self-care (01) ==
PROVIDERS: Physician Assistant; Physician Assistant Medical; Emergency Provider Emergency Medicine
DX: R60.0 Localized edema (principal); R51.9 Headache, unspecified; M79.604 Pain in right leg; Z79.899 Other long term (current) drug therapy
CPT/HCPCS: 36415; 70450; 80053; 83036; 83735; 84702; 85025; 85610; 85652; 86140; 93971; 99282; 99283; 99284